=== PATIENT | male | born 1980 | race Caucasian/White ===

== ENCOUNTER 2018-03-08 13:43 | Inpatient (IN) | payer SELFPAY ==
[2018-03-08] MEDS ORDERED: Sodium Chloride 0.9% 10 ML Syringe FLUSH PRN (13:46)
[2018-03-08] MEDS ORDERED: Sodium Chloride 0.9% 2.5 ML Syringe FLUSH PRN (13:46)
[2018-03-08] MEDS ORDERED: Sodium Chloride 0.9% 1,000 ML IV ONE ×2 (13:47→15:20)
[2018-03-08] MEDS ORDERED: LORazepam 2 MG/ML SDV IVPUSH ONE ×3 (13:47→16:29)
--- NOTE | 2018-03-08 14:45 | EDM.PDOC ---
ED HPI GENERAL MEDICAL PROBLEM - General Chief Complaint: Drug or Alcohol Abuse Stated Complaint: UNK Time Seen by Provider: 03/08/18 13:45 Source of Information: Reports: Patient History Limitations: Reports: No Limitations - History of Present Illness INITIAL COMMENTS - FREE TEXT/NARRATIVE: History of present illness: []Patient has been on a binge using methamphetamines for the past 3 days constantly. He was brought in by police and EMS paranoid and agitated, admitted using methamphetamines for the past 3 days states he wants to stop. He has done this several times in the past wants to live a normal happy life. Patient spent 8 years in alf and has been out 2 years and states that he's paranoid is after him. Review of systems: As per history of present illness and below otherwise all systems reviewed and negative. Past medical history: As per history of present illness and as reviewed below otherwise noncontributory. Surgical history: As per history of present illness and as reviewed below otherwise noncontributory. Social history: No reported history of drug or alcohol abuse. Family history: As per history of present illness and as reviewed below otherwise noncontributory. Physical exam: General: Well developed, well nourished in NAD HEENT: Atraumatic, normocephalic, pupils reactive, negative for conjunctival pallor or scleral icterus, mucous membranes moist, throat clear, neck supple, nontender, trachea midline. Lungs: Clear to auscultation, breath sounds equal bilaterally, chest nontender. Heart: S1S2, regular, negative for clicks, rubs, or JVD. Abdomen: Soft, nondistended, nontender. Negative for masses or hepatosplenomegaly. Negative for costovertebral tenderness. Pelvis: Stable nontender. Genitourinary: Deferred. Rectal: Deferred. Extremities: Atraumatic, negative for cords or calf pain. Neurovascular unremarkable. Neuro: Awake, alert, oriented. Cranial nerves II through XII unremarkable. Cerebellum unremarkable. Motor and sensory unremarkable throughout. Exam nonfocal. Diagnostics: []CBC negative, chemistry negative, UA negative CPK 3300, troponin negative, EKG sinus tach, Therapeutics: []IV hydrated with normal saline, repeated doses of Ativan given in the ED 4 mg total Impression: []Methamphetamine abuse/binge Plan: []Admit for observation, hydration Definitive disposition and diagnosis as appropriate pending reevaluation and review of above. Chest Pain Score (Numeric/FACES): 7 - Related Data Allergies Allergy/AdvReac Type Severity Reaction Status Date / Time No Known Allergies Allergy Verified 03/08/18 13:52 Home Meds: Home Meds Escitalopram [Lexapro] 20 mg PO DAILY 03/08/18 [History] QUEtiapine [SEROquel] 100 mg PO BID 03/08/18 [History] Past Medical History Gastrointestinal History: Reports: Hepatitis Psychiatric History: Reports: Anxiety, Depression - Infectious Disease History Infectious Disease History: Reports: Chicken Pox, Hepatitis C Social & Family History - Family History Family Medical History: Noncontributory - Tobacco Use Smoking Status *Q: Current Every Day Smoker Years of Tobacco use: 15 Packs/Tins Daily: 1 Used Tobacco, but Quit: No Second Hand Smoke Exposure: Yes - Caffeine Use Caffeine Use: Reports: Coffee, Energy Drinks, Soda, Tea - Alcohol Use Days Per Week of Alcohol Use: 7 Number of Drinks Per Day: 10 Total Drinks Per Week: 70 - Recreational Drug Use Recreational Drug Use: Yes Recreational Drug Type: Reports: Cocaine, Marijuana/Hashish, Methamphetamine Recreational Drug Use Frequency: Binges ED ROS GENERAL - Review of Systems Review Of Systems: See Below (See history of present illness) ED EXAM, GENERAL - Physical Exam Exam: See Below (See history of present illness) Course - Vital Signs Last Recorded V/S: Last Vital Signs Temp 99.4 F 03/08/18 13:56 Pulse 105 03/08/18 16:34 Resp 18 03/08/18 16:34 BP 153/112 03/08/18 16:34 Pulse Ox 96 03/08/18 16:34 - Orders/Labs/Meds Orders: Active Orders 24 hr Category Date Time Status EKG Documentation Completion [RC] STAT Care 03/08/18 13:48 Active DRUG SCREEN, URINE [URCHEM] Stat Lab 03/08/18 14:15 Ordered Sodium Chloride 0.9% [Saline Flush] Med 03/08/18 13:46 Active 10 ml FLUSH ASDIRECTED PRN Sodium Chloride 0.9% [Saline Flush] Med 03/08/18 13:46 Active 2.5 ml FLUSH ASDIRECTED PRN Saline Lock Insert [OM.PC] Stat Oth 03/08/18 13:46 Ordered Medication Orders Escitalopram Oxalate (Lexapro) 20 mg PO DAILY [facility] Folic Acid (Folic Acid) 1 mg SUBCUT DAILY [facility] Lactated Ringer's (Ringers, Lactated) 1,000 mls @ 200 mls/hr IV ASDIRECTED JAYLAN Lorazepam (Ativan) 0 mg IV Q4H PRN; Protocol PRN Reason: CIWAA Lorazepam (Ativan) 1 mg IVPUSH Q6H PRN PRN Reason: anxiety/agitation Ondansetron HCl (Zofran) 4 mg IVPUSH Q4H PRN PRN Reason: Nausea Quetiapine Fumarate (Seroquel) 100 mg PO BID JAYLAN Sodium Chloride (Saline Flush) 10 ml FLUSH ASDIRECTED PRN PRN Reason: Keep Vein Open Last Admin: 03/08/18 14:20 Dose: 10 ml Sodium Chloride (Saline Flush) 2.5 ml FLUSH ASDIRECTED PRN PRN Reason: Keep Vein Open Last Admin: 03/08/18 14:21 Dose: 2.5 ml Thiamine HCl (Vitamin B-1) 100 mg IV DAILY [facility] Labs: Laboratory Tests 03/08/18 03/08/18 03/08/18 Range/Units 14:00 14:00 14:15 WBC 10.80 K/uL RBC 4.93 M/uL Hgb 16.8 g/dL Hct 44.9 % MCV 91.1 fL MCH 34.1 pg MCHC 37.4 g/dL RDW Std Deviation 40.7 (28.0-62.0) fl RDW Coeff of Emmy 12 % Plt Count 282 K/uL MPV 9.60 fL Neut % (Auto) 73.2 % Lymph % (Auto) 13.8 % [place] % (Auto) 12.6 % Eos % (Auto) 0.2 % Baso % (Auto) 0.2 % Neut # (Auto) 7.9 K/uL Lymph # (Auto) 1.5 K/uL [place] # (Auto) 1.4 K/uL Eos # (Auto) 0.0 K/uL Baso # (Auto) 0.0 K/uL Nucleated RBC % 0.0 /100WBC Nucleated RBCs # 0 K/uL Sodium 132 mmol/L Potassium 3.7 mmol/L Chloride 94 mmol/L Carbon Dioxide 25.3 mmol/L BUN 14 mg/dL Creatinine 1.3 mg/dL Est Cr Clr Drug Dosing TNP Estimated GFR (MDRD) 61.8 ml/min Glucose 109 mg/dL Calcium 9.4 mg/dL Total Bilirubin 1.6 H (0.2-1.0) mg/dL AST 215 IU/L ALT 371 IU/L Alkaline Phosphatase 106 U/L Creatine Kinase 3393 U/L Troponin I < 0.050 ng/mL Total Protein 8.6 g/dL Albumin 4.4 g/dL Globulin 4.2 g/dL Albumin/Globulin Ratio 1.0 Urine Color Urine Appearance Urine pH Ur Specific [place] Urine Protein mg/dL Urine Glucose (UA) mg/dL Urine Ketones mg/dL Urine Occult Blood Urine Nitrite Urine Bilirubin Urine Urobilinogen EU/dL Ur Leukocyte Esterase Urine RBC Urine WBC Ur Epithelial Cells Urine Bacteria Urine Mucus Urine Opiates Screen NEGATIVE Ur Oxycodone Screen NEGATIVE Urine Methadone Screen NEGATIVE Ur Barbiturates Screen NEGATIVE Ur Phencyclidine Scrn NEGATIVE Ur Amphetamine Screen POSITIVE U Methamphetamines Scrn POSITIVE U Benzodiazepines Scrn NEGATIVE U Cocaine Metab Screen NEGATIVE U Marijuana (THC) Screen NEGATIVE Ethyl Alcohol < 3.0 mg/dL 03/08/18 Range/Units 14:15 WBC K/uL RBC M/uL Hgb g/dL Hct % MCV fL MCH pg MCHC g/dL RDW Std Deviation (28.0-62.0) fl RDW Coeff of Emmy % Plt Count K/uL MPV fL Neut % (Auto) % Lymph % (Auto) % [place] % (Auto) % Eos % (Auto) % Baso % (Auto) % Neut # (Auto) K/uL Lymph # (Auto) K/uL [place] # (Auto) K/uL Eos # (Auto) K/uL Baso # (Auto) K/uL Nucleated RBC % /100WBC Nucleated RBCs # K/uL Sodium mmol/L Potassium mmol/L Chloride mmol/L Carbon Dioxide mmol/L BUN mg/dL Creatinine mg/dL Est Cr Clr Drug Dosing Estimated GFR (MDRD) ml/min Glucose mg/dL Calcium mg/dL Total Bilirubin (0.2-1.0) mg/dL AST IU/L ALT IU/L Alkaline Phosphatase U/L Creatine Kinase U/L Troponin I ng/mL Total Protein g/dL Albumin g/dL Globulin g/dL Albumin/Globulin Ratio Urine Color YELLOW Urine Appearance CLEAR Urine pH 6.0 Ur Specific [place] 1.020 Urine Protein NEGATIVE mg/dL Urine Glucose (UA) NEGATIVE mg/dL Urine Ketones NEGATIVE mg/dL Urine Occult Blood NEGATIVE Urine Nitrite NEGATIVE Urine Bilirubin NEGATIVE Urine Urobilinogen 0.2 EU/dL Ur Leukocyte Esterase NEGATIVE Urine RBC 0-1 Urine WBC 0-1 Ur Epithelial Cells RARE Urine Bacteria RARE Urine Mucus LIGHT Urine Opiates Screen Ur Oxycodone Screen Urine Methadone Screen Ur Barbiturates Screen Ur Phencyclidine Scrn Ur Amphetamine Screen U Methamphetamines Scrn U Benzodiazepines Scrn U Cocaine Metab Screen U Marijuana (THC) Screen Ethyl Alcohol mg/dL Meds: Medications Generic Name Dose Route Start Last Admin Trade Name Freq PRN Reason Stop Dose Admin Escitalopram Oxalate 20 mg 03/09/18 09:00 Lexapro PO DAILY JAYLAN Folic Acid 1 mg 03/08/18 17:30 Folic Acid SUBCUT DAILY JAYLAN Lactated Ringer's 1,000 mls @ 200 mls/hr 03/08/18 16:45 Ringers, Lactated IV ASDIRECTED JAYLAN Lorazepam 0 mg 03/08/18 16:34 Ativan IV Q4H PRN CIWAA Protocol Lorazepam 1 mg 03/08/18 17:23 Ativan IVPUSH Q6H PRN anxiety/agitation Ondansetron HCl 4 mg 03/08/18 16:34 Zofran IVPUSH Q4H PRN Nausea Quetiapine Fumarate 100 mg 03/08/18 21:00 Seroquel PO BID JAYLAN Sodium Chloride 10 ml 03/08/18 13:46 03/08/18 14:20 Saline Flush FLUSH 10 ml ASDIRECTED PRN Administration Keep Vein Open Sodium Chloride 2.5 ml 03/08/18 13:46 03/08/18 14:21 Saline Flush FLUSH 2.5 ml ASDIRECTED PRN Administration Keep Vein Open Thiamine HCl 100 mg 03/08/18 17:30 Vitamin B-1 IV DAILY JAYLAN Discontinued Medications Generic Name Dose Route Start Last Admin Trade Name Freq PRN Reason Stop Dose Admin Sodium Chloride 1,000 mls @ 999 mls/hr 03/08/18 13:47 03/08/18 14:20 Normal Saline IV 03/08/18 14:47 999 mls/hr .Bolus ONE Administration Sodium Chloride 1,000 mls @ 999 mls/hr 03/08/18 15:20 03/08/18 15:48 Normal Saline IV 06/28/18 16:20 999 mls/hr .Bolus ONE Administration Lorazepam 1 mg 03/08/18 13:47 03/08/18 14:20 Ativan IVPUSH 03/08/18 13:48 1 mg ONETIME ONE Administration Lorazepam 2 mg 03/08/18 14:30 03/08/18 14:36 Ativan IVPUSH 03/08/18 14:31 2 mg ONETIME ONE Administration Lorazepam 1 mg 03/08/18 16:29 Ativan IVPUSH 03/08/18 16:30 ONETIME ONE Departure - Departure Time of Disposition: 17:00 Disposition: Admitted As Inpatient 65 Condition: Good, Fair Clinical Impression: Methamphetamine abuse - Discharge Information - My Orders Last 24 Hours: My Active Orders 03/08/18 13:46 Sodium Chloride 0.9% [Saline Flush] 10 ml FLUSH ASDIRECTED PRN Sodium Chloride 0.9% [Saline Flush] 2.5 ml FLUSH ASDIRECTED PRN Saline Lock Insert [OM.PC] Stat 03/08/18 13:48 EKG Documentation Completion [RC] STAT 03/08/18 14:15 DRUG SCREEN, URINE [URCHEM] Stat - Assessment/Plan Last 24 Hours: My Active Orders 03/08/18 13:46 Sodium Chloride 0.9% [Saline Flush] 10 ml FLUSH ASDIRECTED PRN Sodium Chloride 0.9% [Saline Flush] 2.5 ml FLUSH ASDIRECTED PRN Saline Lock Insert [OM.PC] Stat 03/08/18 13:48 EKG Documentation Completion [RC] STAT 03/08/18 14:15 DRUG SCREEN, URINE [URCHEM] Stat
[2018-03-08 14:48] LABS: CHLORIDE,CL 94 mmol/L; SODIUM,NA 132 mmol/L
[2018-03-08] MEDS ORDERED: Ondansetron 4 MG/2 ML SDV IVPUSH PRN (16:34)
--- NOTE | 2018-03-08 16:48 | PCM.HP ---
H&P History of Present Illness - General Date of Service: 03/08/18 Admit Problem/Dx: Admission Diagnosis/Problem Admission Diagnosis/Problem Alcohol withdrawl, acute methamphetamine intoxication, rhabdomyolysis, and dehydration Source of Information: Patient History Limitations: Reports: Intoxication (methamphetamine and alcohol withdrawl) - History of Present Illness Initial Comments - Free Text/Narative: This 37 year old male with pmh of alcohol abuse, tobacco abuse, poly substance abuse, anxiety and depression presented to the ED with EMS today with paranoia and acute methamphetamine intoxication. He reports he has been using methamphetamines daily all day long for the past few days, he has orally ingested it along with smoking it, reports, "these drugs are stronger from when I went to [facility]." reports he was in [facility] for approximately 7-8 years for theft and had stopped using drugs all together for this time frame. He reports he has been out of [facility] for about 3 years and has started using drugs again, which include cocaine, methamphetamines, and marijuana. He also drinks 1 gallon of alcohol in 3-4 days. Reports having a history of seizures with cocaine use, but denies alcohol withdrawl. Unsure of his last drink, maybe a day ago. He reports he wants to stop using all together and wants help with this, "I am killing myself, if I continue to use drugs like this." Reports he has been Hep C positive since around age 26-28 and has never received treatment or seen a GI specialist for this. He reports smoking 1/2 ppd cigarettes as well daily. He denies recent trauma or injury. Reports he hasn't been eating for drinking great recently, but has been working out a lot at the gym. He denies any chest pain or shortness of breath. Reports some upper arm muscle pain and fatigue. No abdominal pain, constipation or diarrhea. No black or bloody BMs. reports tremors, denies hallucinations, auditory or visual. He reports being very anxious and paranoid, feeling as though people are out to hurt him. He denies suicidal ideation or homicidal ideation currently. Patient is a poor historian and very direct questions need to be asked otherwise patient does not answer them easily. In the ED no leukocytosis noted, Hgb 16.8, Na 132, K+3.7, BUN 14, Cr 1.3, CPK 3393, Troponin negative. Total bili 1.6, AST 215, ALT 371, alk phos 106. Ua negative. ETOH <3.0. U tox positive for methamphetamines and amphetamines. He was treated with 3 mg Ativan IV in the ED along with NS bolus x 2 L. VS remained stable, EKG revealed ST. he will be admitted inpatient for alcohol withdrawl, acute methamphetamine intoxication, and rhabdomyolysis. Chest Pain Score (Numeric/FACES): 7 - Related Data Allergies/Adverse Reactions: Allergies Allergy/AdvReac Type Severity Reaction Status Date / Time No Known Allergies Allergy Verified 03/08/18 13:52 Home Medications: Home Meds Escitalopram [Lexapro] 20 mg PO DAILY 03/08/18 [History] QUEtiapine [SEROquel] 100 mg PO BID 03/08/18 [History] Past Medical History Cardiovascular History: Reports: None. Denies: CAD, Hypertension, [place] Respiratory History: Reports: None. Denies: Asthma, COPD Gastrointestinal History: Reports: Hepatitis (Hepatitis C since age [age]) Genitourinary History: Reports: None Musculoskeletal History: Reports: None Neurological History: Reports: Seizure (reports from Cocaine use, never been on medications.) Psychiatric History: Reports: Addiction (polysubstance abuse), Anxiety, Depression. Denies: Suicide Attempt, Suicidal Ideation Endocrine/Metabolic History: Reports: None. Denies: Diabetes, Type II - Infectious Disease History Infectious Disease History: Reports: Chicken Pox, Hepatitis C Social & Family History - Family History Family Medical History: Noncontributory - Tobacco Use Smoking Status *Q: Current Every Day Smoker Years of Tobacco use: 15 Packs/Tins Daily: 0.5 Used Tobacco, but Quit: No Second Hand Smoke Exposure: Yes - Caffeine Use Caffeine Use: Reports: Coffee, Energy Drinks, Soda, Tea - Alcohol Use Alcohol Use History: Yes Days Per Week of Alcohol Use: 7 Number of Drinks Per Day: 10 Total Drinks Per Week: 70 Alcohol Use Frequency: Daily - Recreational Drug Use Recreational Drug Use: Yes Recreational Drug Type: Reports: Cocaine, Marijuana/Hashish, Methamphetamine Recreational Drug Use Frequency: Binges Recreational Drug Route: Reports: Inhaled, Intravenous (rarely but has in the past), Oral - Living Situation & Occupation Living situation: Reports: Single, Alone Occupation: Employed (currently working a [employer] wanting to get back into the [employer]) H&P Review of Systems - Review of Systems: Review Of Systems: See Below General: Reports: No Symptoms, Fatigue. Denies: Fever, Chills HEENT: Reports: No Symptoms. Denies: Hearing Changes, Sinus Congestion, Sore Throat, Vertigo Pulmonary: Reports: No Symptoms. Denies: Shortness of Breath, Cough, Sputum Cardiovascular: Reports: No Symptoms. Denies: Chest Pain, Palpitations, Edema, Lightheadedness Gastrointestinal: Reports: No Symptoms. Denies: Abdominal Pain, Black Stool, Bloody Stool, Distension, Nausea, Vomiting Genitourinary: Reports: No Symptoms. Denies: Dysuria, Frequency, Burning Musculoskeletal: Reports: Other (upper arm muscle fatigue and soreness from working out te last few days.) Skin: Reports: No Symptoms Psychiatric: Reports: Confusion, Depression, Anxiety, Agitation. Denies: Suicidal Ideation, Homicidal Ideation, Hallucinations (Auditory), Hallucinations (Visual) Neurological: Reports: Tremors. Denies: Headache, Numbness, Paresthesia, Seizure, Syncope, Weakness Hematologic/Lymphatic: Reports: No Symptoms Exam - Exam Exam: See Below - Vital Signs Vital Signs: Last Vital Signs Temp 99.4 F 03/08/18 13:56 Pulse 112 03/08/18 16:22 Resp 20 03/08/18 16:22 BP 136/76 03/08/18 16:22 Pulse Ox 98 03/08/18 16:22 Weight: 83.915 kg - Exam Quality Assessment: DVT Prophylaxis (SCDs) General: Alert, Oriented, Cooperative, Sedated (easily falls asleep between discussions.), Other (Patient is very figidity in bed, easily falling asleep during conversation, flushed face that is clammy in appearance.) HEENT: Conjunctiva Clear, Mucosa Moist & [place], Pupils Equal, Pupils Reactive Neck: Supple, Trachea Midline Lungs: Clear to Auscultation, Normal Respiratory Effort Cardiovascular: Regular Rhythm, Normal S1, Normal S2, Tachycardia. No: Systolic Murmur GI/Abdominal Exam: Normal Bowel Sounds, Soft, Non-Tender, No Organomegaly, No Distention Back Exam: Normal Inspection, Full Range of Motion Extremities: Normal Inspection, Normal Range of Motion, Non-Tender, No Pedal Edema Skin: Other (Clammy in appearance. ) Neuro Extensive - Mental Status: Alert, Oriented x3, Other (appears to have normal cognition, but poor historian and like sedated from Ativan and disorganized thoughts from methamphetamine.) Neuro Extensive - Motor, Sensory, Reflexes: CN II-XII Intact (will follow commands, but easily distracted.), Tremor Psychiatric: Anxious, Agitated, Withdrawal Symptoms, Other (constantly looking around the room. Nervous). No: Suicidal Ideation, Homicidal Ideation, Hallucinations - Patient Data Lab Results Last 24 hrs: Laboratory Results - last 24 hr 03/08/18 03/08/18 03/08/18 Range/Units 14:00 14:00 14:15 WBC 10.80 K/uL RBC 4.93 M/uL Hgb 16.8 g/dL Hct 44.9 % MCV 91.1 fL MCH 34.1 pg MCHC 37.4 g/dL RDW Std Deviation 40.7 (28.0-62.0) fl RDW Coeff of Emmy 12 % Plt Count 282 K/uL MPV 9.60 fL Neut % (Auto) 73.2 % Lymph % (Auto) 13.8 % [place] % (Auto) 12.6 % Eos % (Auto) 0.2 % Baso % (Auto) 0.2 % Neut # (Auto) 7.9 K/uL Lymph # (Auto) 1.5 K/uL [place] # (Auto) 1.4 K/uL Eos # (Auto) 0.0 K/uL Baso # (Auto) 0.0 K/uL Nucleated RBC % 0.0 /100WBC Nucleated RBCs # 0 K/uL Sodium 132 mmol/L Potassium 3.7 mmol/L Chloride 94 mmol/L Carbon Dioxide 25.3 mmol/L BUN 14 mg/dL Creatinine 1.3 mg/dL Est Cr Clr Drug Dosing TNP Estimated GFR (MDRD) 61.8 ml/min Glucose 109 mg/dL Calcium 9.4 mg/dL Total Bilirubin 1.6 H (0.2-1.0) mg/dL AST 215 IU/L ALT 371 IU/L Alkaline Phosphatase 106 U/L Creatine Kinase 3393 U/L Troponin I < 0.050 ng/mL Total Protein 8.6 g/dL Albumin 4.4 g/dL Globulin 4.2 g/dL Albumin/Globulin Ratio 1.0 Urine Color Urine Appearance Urine pH Ur Specific [place] Urine Protein mg/dL Urine Glucose (UA) mg/dL Urine Ketones mg/dL Urine Occult Blood Urine Nitrite Urine Bilirubin Urine Urobilinogen EU/dL Ur Leukocyte Esterase Urine RBC Urine WBC Ur Epithelial Cells Urine Bacteria Urine Mucus Urine Opiates Screen NEGATIVE Ur Oxycodone Screen NEGATIVE Urine Methadone Screen NEGATIVE Ur Barbiturates Screen NEGATIVE Ur Phencyclidine Scrn NEGATIVE Ur Amphetamine Screen POSITIVE U Methamphetamines Scrn POSITIVE U Benzodiazepines Scrn NEGATIVE U Cocaine Metab Screen NEGATIVE U Marijuana (THC) Screen NEGATIVE Ethyl Alcohol < 3.0 mg/dL 03/08/18 Range/Units 14:15 WBC K/uL RBC M/uL Hgb g/dL Hct % MCV fL MCH pg MCHC g/dL RDW Std Deviation (28.0-62.0) fl RDW Coeff of Emmy % Plt Count K/uL MPV fL Neut % (Auto) % Lymph % (Auto) % [place] % (Auto) % Eos % (Auto) % Baso % (Auto) % Neut # (Auto) K/uL Lymph # (Auto) K/uL [place] # (Auto) K/uL Eos # (Auto) K/uL Baso # (Auto) K/uL Nucleated RBC % /100WBC Nucleated RBCs # K/uL Sodium mmol/L Potassium mmol/L Chloride mmol/L Carbon Dioxide mmol/L BUN mg/dL Creatinine mg/dL Est Cr Clr Drug Dosing Estimated GFR (MDRD) ml/min Glucose mg/dL Calcium mg/dL Total Bilirubin (0.2-1.0) mg/dL AST IU/L ALT IU/L Alkaline Phosphatase U/L Creatine Kinase U/L Troponin I ng/mL Total Protein g/dL Albumin g/dL Globulin g/dL Albumin/Globulin Ratio Urine Color YELLOW Urine Appearance CLEAR Urine pH 6.0 Ur Specific [place] 1.020 Urine Protein NEGATIVE mg/dL Urine Glucose (UA) NEGATIVE mg/dL Urine Ketones NEGATIVE mg/dL Urine Occult Blood NEGATIVE Urine Nitrite NEGATIVE Urine Bilirubin NEGATIVE Urine Urobilinogen 0.2 EU/dL Ur Leukocyte Esterase NEGATIVE Urine RBC 0-1 Urine WBC 0-1 Ur Epithelial Cells RARE Urine Bacteria RARE Urine Mucus LIGHT Urine Opiates Screen Ur Oxycodone Screen Urine Methadone Screen Ur Barbiturates Screen Ur Phencyclidine Scrn Ur Amphetamine Screen U Methamphetamines Scrn U Benzodiazepines Scrn U Cocaine Metab Screen U Marijuana (THC) Screen Ethyl Alcohol mg/dL Result Diagrams: 03/08/18 14:00 03/08/18 14:00 *Q Meaningful Use (ADM) - VTE Risk Assess *Q Each Risk Factor Represents 1 Point: None Total Score 1 Point Risk Factors: 0 Each Risk Factor Represents 2 Points: None Total Score 2 Point Risk Factors: 0 Each Risk Factor Represents 3 Points: None Total Score 3 Point Risk Factors: 0 Each Risk Factor Represents 5 Points: None Total Score 5 Point Risk Factors: 0 Venous Thromboembolism Risk Factor Score *Q: 0 - Problem List (1) Alcohol withdrawal SNOMED Code(s): 513211528 ICD Code: F10.239 - ALCOHOL DEPENDENCE WITH WITHDRAWAL, UNSPECIFIED Status : Acute Current Visit: Yes (2) Rhabdomyolysis SNOMED Code(s): 216738254 ICD Code: M62.82 - RHABDOMYOLYSIS Status: Acute Current Visit: Yes (3) Methamphetamine intoxication SNOMED Code(s): 04965181532448272 ICD Code: F15.929 - OTHER STIMULANT USE, UNSP WITH INTOXICATION, UNSPECIFIED Status: Acute Current Visit: Yes (4) Dehydration SNOMED Code(s): 09696310 ICD Code: E86.0 - DEHYDRATION Status: Acute Current Visit: Yes (5) Elevated LFTs SNOMED Code(s): 909778482, 431965979 ICD Code: R94.5 - ABNORMAL RESULTS OF LIVER FUNCTION STUDIES Status: Acute Current Visit: Yes (6) Alcohol abuse SNOMED Code(s): 46645178 ICD Code: F10.10 - ALCOHOL ABUSE, UNCOMPLICATED Status: Chronic Current Visit: Yes (7) Polysubstance (excluding opioids) dependence, binge pattern SNOMED Code(s): 192529345 ICD Code: F19.20 - OTHER PSYCHOACTIVE SUBSTANCE DEPENDENCE, UNCOMPLICATED Status: Chronic Current Visit: Yes (8) Anxiety and depression SNOMED Code(s): 53088344 ICD Code: F41.9 - ANXIETY DISORDER, UNSPECIFIED; F32.9 - MAJOR DEPRESSIVE DISORDER, SINGLE EPISODE, UNSPECIFIED Status: Chronic Current Visit: Yes (9) Hx of hepatitis C SNOMED Code(s): 74349655555637, 25219027726219 ICD Code: Z86.19 - PERSONAL HISTORY OF OTHER INFECTIOUS AND PARASITIC DISEASES Status: Chronic Current Visit: Yes Problem List Initiated/Reviewed/Updated: Yes Orders Last 24hrs: Active Orders 24 hr Category Date Time Status Patient Status [ADT] Routine ADT 03/08/18 16:34 Ordered CIWAA Assessment [RC] Q4H Care 03/08/18 16:34 Ordered EKG Documentation Completion [RC] STAT Care 03/08/18 13:48 Active Intake and Output [RC] QSHIFT Care 03/08/18 16:35 Ordered Oxygen Therapy [RC] PRN Care 03/08/18 16:34 Ordered Telemetry Monitoring [Cardiac Monitoring] [RC] . Care 03/08/18 16:39 Ordered DIRECTED Up With Assistance [RC] ASDIRECTED Care 03/08/18 16:34 Ordered VTE/DVT Education [RC] PER UNIT ROUTINE Care 03/08/18 16:34 Ordered Vital Signs [RC] Q4H Care 03/08/18 16:34 Ordered Regular Diet [DIET] Diet 03/08/18 Dinner Ordered CBC WITH AUTO DIFF [HEME] AM Lab 03/09/18 05:11 Ordered COMPREHENSIVE METABOLIC PN,CMP [CHEM] AM Lab 03/09/18 05:11 Ordered CREATINE KINASE,CK [CHEM] AM Lab 03/09/18 05:11 Ordered DRUG SCREEN, URINE [URCHEM] Stat Lab 03/08/18 14:41 Ordered HEPATITIS PANEL (4) [REF] Routine Lab 03/08/18 16:41 Ordered MAGNESIUM [CHEM] AM Lab 03/09/18 05:11 Ordered PHOSPHORUS [CHEM] AM Lab 03/09/18 05:11 Ordered Escitalopram Med 03/09/18 09:00 Ordered 20 mg PO DAILY LORazepam [Ativan] Med 03/08/18 16:34 Ordered See Protocol IV Q4H PRN Lactated Ringers [Ringers, Lactated] 1,000 ml Med 03/08/18 16:45 Ordered IV ASDIRECTED Ondansetron [Zofran] Med 03/08/18 16:34 Ordered 4 mg IVPUSH Q4H PRN QUEtiapine [SEROquel] Med 03/08/18 21:00 Ordered 100 mg PO BID Sodium Chloride 0.9% [Saline Flush] Med 03/08/18 13:46 Active 10 ml FLUSH ASDIRECTED PRN Sodium Chloride 0.9% [Saline Flush] Med 03/08/18 13:46 Active 2.5 ml FLUSH ASDIRECTED PRN Saline Lock Insert [OM.PC] Stat Oth 03/08/18 13:46 Ordered Sequential Compression Device [OM.PC] Per Unit Routine Oth 03/08/18 16:36 Ordered Resuscitation Status Routine Resus Stat 03/08/18 16:34 Ordered Medication Orders Lactated Ringer's (Ringers, Lactated) 1,000 mls @ 200 mls/hr IV ASDIRECTED JAYLAN Lorazepam (Ativan) 0 mg IV Q4H PRN; Protocol PRN Reason: CIWAA Non-Formulary Medication (Escitalopram) 20 mg PO DAILY JAYLAN Ondansetron HCl (Zofran) 4 mg IVPUSH Q4H PRN PRN Reason: Nausea Quetiapine Fumarate (Seroquel) 100 mg PO BID JAYLAN Sodium Chloride (Saline Flush) 10 ml FLUSH ASDIRECTED PRN PRN Reason: Keep Vein Open Last Admin: 03/08/18 14:20 Dose: 10 ml Sodium Chloride (Saline Flush) 2.5 ml FLUSH ASDIRECTED PRN PRN Reason: Keep Vein Open Last Admin: 03/08/18 14:21 Dose: 2.5 ml Assessment/Plan Comment:: This 37 year old male admitted with acute alcohol withdrawl, methamphetamine intoxication, rhabdomyolysis, and dehydration. Has a pmh of polysubstance abuse , anxiety and depression 1. Alcohol withdrawl: Will cover with CIWAA protocol with Ativan. Monitor closely. Will supplement with thiamine and folic acid. Place on seizure precautions due to hx of seizures with cocaine use. 2. Acute methamphetamine intoxication: Ativan as above to help with agitation and anxiety. Monitor closely. 3. Rhabdomyolysis: Given 2 L bolus in the ED, may be secondary to methamphetamine use, dehydration and recent high intensity work out. Continue LR at 200 ml/hr and recheck CPK in am. Strict I/O. 4. Anxiety and depression: Continue Seroquel and Lexapro. Will contact Dr Sun in am regarding possible consultation. 5. Tobacco abuse: Will hold off on placement of nicotine patch secondary to tachycardia. 6. Elevated LFTs: Will obtain hepatitis panel and abd U/S to evaluate liver. VTE prophylaxis: SCDs Dispo: 2-3 days pending improvement.
[2018-03-08] MEDS ORDERED: LORazepam 2 MG/ML SDV IVPUSH PRN (17:23)
[2018-03-08] MEDS: QUEtiapine 100 MG Tab PO SCH (22:00)
[2018-03-08] MEDS: Lactated Ringers 1,000 ML IV SCH (22:03)
[2018-03-08] MEDS: Thiamine 200 MG/2 ML MDV IV SCH (22:06)
[2018-03-08] MEDS: Folic Acid 50 MG/10 ML MDV SUBCUT SCH (22:06)
[2018-03-09] MEDS: LORazepam 2 MG/ML SDV IV PRN ×3 (01:32→05:08)
[2018-03-09] MEDS: Lactated Ringers 1,000 ML IV SCH (03:12)
[2018-03-09 06:04] LABS: CHLORIDE,CL 103 mmol/L; SODIUM,NA 139 mmol/L
[2018-03-09] MEDS ORDERED: LORazepam 2 MG/ML SDV IM ONE (08:48)
[2018-03-09] MEDS ORDERED: Escitalopram 10 MG Tab PO SCH (09:00)
--- NOTE | 2018-03-09 09:03 | PCM.DCSUM1 ---
Discharge Summary - Hospital Course Brief History: This 37 year old male with pmh of alcohol abuse, tobacco abuse, poly substance abuse, anxiety and depression presented to the ED with EMS today with paranoia and acute methamphetamine intoxication. He reports he has been using methamphetamines daily all day long for the past few days, he has orally ingested it along with smoking it, reports, "these drugs are stronger from when I went to shelter." reports he was in shelter for approximately 7-8 years for theft and had stopped using drugs all together for this time frame. He reports he has been out of shelter for about 3 years and has started using drugs again, which include cocaine, methamphetamines, and marijuana. He also drinks 1 gallon of alcohol in 3-4 days. Reports having a history of seizures with cocaine use, but denies alcohol withdrawl. Unsure of his last drink, maybe a day ago. He reports he wants to stop using all together and wants help with this, "I am killing myself, if I continue to use drugs like this." Reports he has been Hep C positive since around age 26-28 and has never received treatment or seen a GI specialist for this. He reports smoking 1/2 ppd cigarettes as well daily. He denies recent trauma or injury. Reports he hasn't been eating for drinking great recently, but has been working out a lot at the gym. He denies any chest pain or shortness of breath. Reports some upper arm muscle pain and fatigue. No abdominal pain, constipation or diarrhea. No black or bloody BMs. reports tremors, denies hallucinations, auditory or visual. He reports being very anxious and paranoid, feeling as though people are out to hurt him. He denies suicidal ideation or homicidal ideation currently. Patient is a poor historian and very direct questions need to be asked otherwise patient does not answer them easily. In the ED no leukocytosis noted, Hgb 16.8, Na 132, K+3.7, BUN 14, Cr 1.3, CPK 3393, Troponin negative. Total bili 1.6, AST 215, ALT 371, alk phos 106. Ua negative. ETOH <3.0. U tox positive for methamphetamines and amphetamines. He was treated with 3 mg Ativan IV in the ED along with NS bolus x 2 L. VS remained stable, EKG revealed ST. he will be admitted inpatient for alcohol withdrawl, acute methamphetamine intoxication, and rhabdomyolysis. - Discharge Data Discharge Date: 03/09/18 Discharge Disposition: DC/Tfer to Acute Hospital 02 Condition: Fair - Discharge Diagnosis/Problem(s) (1) Alcohol withdrawal SNOMED Code(s): 125626899 ICD Code: F10.239 - ALCOHOL DEPENDENCE WITH WITHDRAWAL, UNSPECIFIED Status : Acute Current Visit: Yes (2) Rhabdomyolysis SNOMED Code(s): 203353770 ICD Code: M62.82 - RHABDOMYOLYSIS Status: Acute Current Visit: Yes (3) Methamphetamine intoxication SNOMED Code(s): 74173514722034361 ICD Code: F15.929 - OTHER STIMULANT USE, UNSP WITH INTOXICATION, UNSPECIFIED Status: Acute Current Visit: Yes (4) Dehydration SNOMED Code(s): 16623332 ICD Code: E86.0 - DEHYDRATION Status: Acute Current Visit: Yes (5) Elevated LFTs SNOMED Code(s): 546425511, 361373108 ICD Code: R94.5 - ABNORMAL RESULTS OF LIVER FUNCTION STUDIES Status: Acute Current Visit: Yes (6) Alcohol abuse SNOMED Code(s): 54773031 ICD Code: F10.10 - ALCOHOL ABUSE, UNCOMPLICATED Status: Chronic Current Visit: Yes (7) Polysubstance (excluding opioids) dependence, binge pattern SNOMED Code(s): 188807912 ICD Code: F19.20 - OTHER PSYCHOACTIVE SUBSTANCE DEPENDENCE, UNCOMPLICATED Status: Chronic Current Visit: Yes (8) Anxiety and depression SNOMED Code(s): 04651284 ICD Code: F41.9 - ANXIETY DISORDER, UNSPECIFIED; F32.9 - MAJOR DEPRESSIVE DISORDER, SINGLE EPISODE, UNSPECIFIED Status: Chronic Current Visit: Yes (9) Hx of hepatitis C SNOMED Code(s): 81558873800005, 06955651436047 ICD Code: Z86.19 - PERSONAL HISTORY OF OTHER INFECTIOUS AND PARASITIC DISEASES Status: Chronic Current Visit: Yes - Discharge Plan Home Medications: Home Meds Escitalopram [Lexapro] 20 mg PO DAILY 03/08/18 [History] QUEtiapine [SEROquel] 100 mg PO BID 03/08/18 [History] Forms: ED Department Discharge Referrals: PCP,None [Primary Care Provider] - - Discharge Summary/Plan Comment DC Time >30 min.: No Discharge Summary/Plan Comment: Discharge Diagnoses: Acute alcohol detox Methamphetamine use Cocaine use Elevated CPK Tobacco abuse Hx Hep C- untreated Anxiety and depression Jaspreet was admitted last evening with acute alcohol detox. Overnight he was given 8 mg Ativan IV, which kept him only mildly calm. he was in hallways ambulating naked, urinating in the room and having auditory and visual hallucinations. This morning he continues to have CIWAA scores of 17-20. No ICU bed is available in our facility. He understands he needs to be transferred to another hospital for further care for his detox and hallucinations. I spoke with Dr Fry, ED in [place] who has kindly accepted patient for transfer. He last received 2 mg IV Ativan at 0500 this morning. I will given him another dose of Ativan now 2 mg IM, since he recently pulled his IV out. We will transfer patient for acute detox this morning. Will need psychiatric evaluation in future as well as GI follow up for untreated Hep C. - General Info Date of Service: 03/09/18 Admission Dx/Problem (Free Text: Admission Diagnosis/Problem Admission Diagnosis/Problem Alcohol withdrawl, acute methamphetamine intoxication, rhabdomyolysis, and dehydration Subjective Update: Confused and is hallucinating. Recently pulled IV out, with blood all over room and urinating off of bed. Patient is calm when spoken to and understands he needs further help. Thoughts are fleeting knowing he needs help and wants to get better so he can work. Functional Status: Reports: Pain Controlled, Tolerating Diet, Ambulating, Urinating - Review of Systems General: Reports: No Symptoms. Denies: Fever, Weakness HEENT: Reports: No Symptoms Pulmonary: Reports: No Symptoms. Denies: Shortness of Breath Cardiovascular: Reports: No Symptoms. Denies: Chest Pain Gastrointestinal: Reports: No Symptoms. Denies: Abdominal Pain, Nausea, Vomiting Genitourinary: Reports: No Symptoms Musculoskeletal: Reports: No Symptoms Skin: Reports: No Symptoms Neurological: Reports: No Symptoms Psychiatric: Reports: Confusion, Anxiety, Agitation, Hallucinations. Denies: Suicidal Ideation, Homicidal Ideation - Patient Data Vitals - Most Recent: Last Vital Signs Temp 98.3 F 03/09/18 05:15 Pulse 77 03/09/18 05:15 Resp 18 03/09/18 05:15 BP 138/86 03/09/18 05:15 Pulse Ox 96 03/09/18 05:15 Weight - Most Recent: 83.915 kg I&O - Last 24 hours: Intake & Output 03/08/18 03/09/18 03/09/18 22:59 06:59 14:59 Intake Total 1000 240 Balance 1000 240 Lab Results - Last 24 hrs: Laboratory Results - last 24 hr 03/08/18 03/08/18 03/08/18 Range/Units 14:00 14:00 14:15 WBC 10.80 K/uL RBC 4.93 M/uL Hgb 16.8 g/dL Hct 44.9 % MCV 91.1 fL MCH 34.1 pg MCHC 37.4 g/dL RDW Std Deviation 40.7 (28.0-62.0) fl RDW Coeff of Emmy 12 % Plt Count 282 K/uL MPV 9.60 fL Neut % (Auto) 73.2 % Lymph % (Auto) 13.8 % [place] % (Auto) 12.6 % Eos % (Auto) 0.2 % Baso % (Auto) 0.2 % Neut # (Auto) 7.9 K/uL Lymph # (Auto) 1.5 K/uL [place] # (Auto) 1.4 K/uL Eos # (Auto) 0.0 K/uL Baso # (Auto) 0.0 K/uL Nucleated RBC % 0.0 /100WBC Nucleated RBCs # 0 K/uL Sodium 132 mmol/L Potassium 3.7 mmol/L Chloride 94 mmol/L Carbon Dioxide 25.3 mmol/L BUN 14 mg/dL Creatinine 1.3 mg/dL Est Cr Clr Drug Dosing TNP Estimated GFR (MDRD) 61.8 ml/min Glucose 109 mg/dL Calcium 9.4 mg/dL Phosphorus mg/dL Magnesium mg/dL Total Bilirubin 1.6 H (0.2-1.0) mg/dL AST 215 IU/L ALT 371 IU/L Alkaline Phosphatase 106 U/L Creatine Kinase 3393 U/L Troponin I < 0.050 ng/mL Total Protein 8.6 g/dL Albumin 4.4 g/dL Globulin 4.2 g/dL Albumin/Globulin Ratio 1.0 Urine Color Urine Appearance Urine pH Ur Specific [place] Urine Protein mg/dL Urine Glucose (UA) mg/dL Urine Ketones mg/dL Urine Occult Blood Urine Nitrite Urine Bilirubin Urine Urobilinogen EU/dL Ur Leukocyte Esterase Urine RBC Urine WBC Ur Epithelial Cells Urine Bacteria Urine Mucus Urine Opiates Screen NEGATIVE Ur Oxycodone Screen NEGATIVE Urine Methadone Screen NEGATIVE Ur Barbiturates Screen NEGATIVE Ur Phencyclidine Scrn NEGATIVE Ur Amphetamine Screen POSITIVE U Methamphetamines Scrn POSITIVE U Benzodiazepines Scrn NEGATIVE U Cocaine Metab Screen NEGATIVE U Marijuana (THC) Screen NEGATIVE Ethyl Alcohol < 3.0 mg/dL 03/08/18 03/09/18 03/09/18 Range/Units 14:15 04:55 04:55 WBC 7.37 K/uL RBC 4.46 M/uL Hgb 14.9 g/dL Hct 40.9 % MCV 91.7 fL MCH 33.4 pg MCHC 36.4 g/dL RDW Std Deviation 40.9 (28.0-62.0) fl RDW Coeff of Emmy 12 % Plt Count 199 K/uL MPV 9.40 fL Neut % (Auto) 59.1 % Lymph % (Auto) 28.6 % [place] % (Auto) 11.1 % Eos % (Auto) 0.9 % Baso % (Auto) 0.3 % Neut # (Auto) 4.4 K/uL Lymph # (Auto) 2.1 K/uL [place] # (Auto) 0.8 K/uL Eos # (Auto) 0.1 K/uL Baso # (Auto) 0.0 K/uL Nucleated RBC % 0.0 /100WBC Nucleated RBCs # 0 K/uL Sodium 139 mmol/L Potassium 3.3 mmol/L Chloride 103 mmol/L Carbon Dioxide 25.3 mmol/L BUN 11 mg/dL Creatinine 1.2 mg/dL Est Cr Clr Drug Dosing TNP Estimated GFR (MDRD) 67.8 ml/min Glucose 99 mg/dL Calcium 8.9 mg/dL Phosphorus 4.0 mg/dL Magnesium 2.1 mg/dL Total Bilirubin 1.7 H (0.2-1.0) mg/dL AST 143 IU/L ALT 288 IU/L Alkaline Phosphatase 86 U/L Creatine Kinase 1515 U/L Troponin I ng/mL Total Protein 7.1 g/dL Albumin 3.6 g/dL Globulin 3.5 g/dL Albumin/Globulin Ratio 1.0 Urine Color YELLOW Urine Appearance CLEAR Urine pH 6.0 Ur Specific [place] 1.020 Urine Protein NEGATIVE mg/dL Urine Glucose (UA) NEGATIVE mg/dL Urine Ketones NEGATIVE mg/dL Urine Occult Blood NEGATIVE Urine Nitrite NEGATIVE Urine Bilirubin NEGATIVE Urine Urobilinogen 0.2 EU/dL Ur Leukocyte Esterase NEGATIVE Urine RBC 0-1 Urine WBC 0-1 Ur Epithelial Cells RARE Urine Bacteria RARE Urine Mucus LIGHT Urine Opiates Screen Ur Oxycodone Screen Urine Methadone Screen Ur Barbiturates Screen Ur Phencyclidine Scrn Ur Amphetamine Screen U Methamphetamines Scrn U Benzodiazepines Scrn U Cocaine Metab Screen U Marijuana (THC) Screen Ethyl Alcohol mg/dL Med Orders - Current: Current Medications Escitalopram Oxalate (Lexapro) 20 mg PO DAILY [facility] Folic Acid (Folic Acid) 1 mg SUBCUT DAILY [facility] Last Admin: 03/08/18 22:06 Dose: Not Given Lactated Ringer's (Ringers, Lactated) 1,000 mls @ 200 mls/hr IV ASDIRECTED [facility] Last Admin: 03/09/18 03:12 Dose: 200 mls/hr Lorazepam (Ativan) 0 mg IV Q4H PRN; Protocol PRN Reason: CIWAA Last Admin: 03/09/18 05:08 Dose: 2 mg Lorazepam (Ativan) 1 mg IVPUSH Q6H PRN PRN Reason: anxiety/agitation Last Admin: 03/08/18 22:00 Dose: 1 mg Ondansetron HCl (Zofran) 4 mg IVPUSH Q4H PRN PRN Reason: Nausea Quetiapine Fumarate (Seroquel) 100 mg PO BID [facility] Last Admin: 03/08/18 22:00 Dose: 100 mg Sodium Chloride (Saline Flush) 10 ml FLUSH ASDIRECTED PRN PRN Reason: Keep Vein Open Last Admin: 03/08/18 14:20 Dose: 10 ml Sodium Chloride (Saline Flush) 2.5 ml FLUSH ASDIRECTED PRN PRN Reason: Keep Vein Open Last Admin: 03/08/18 14:21 Dose: 2.5 ml Thiamine HCl (Vitamin B-1) 100 mg IV DAILY [facility] Last Admin: 03/08/18 22:06 Dose: Not Given Discontinued Medications Sodium Chloride (Normal Saline) 1,000 mls @ 999 mls/hr IV .Bolus ONE Stop: 03/08/18 14:47 Last Admin: 03/08/18 14:20 Dose: 999 mls/hr Sodium Chloride (Normal Saline) 1,000 mls @ 999 mls/hr IV .Bolus ONE Stop: 03/08/18 16:20 Last Admin: 03/08/18 15:48 Dose: 999 mls/hr Lorazepam (Ativan) 1 mg IVPUSH ONETIME ONE Stop: 03/08/18 13:48 Last Admin: 03/08/18 14:20 Dose: 1 mg Lorazepam (Ativan) 2 mg IVPUSH ONETIME ONE Stop: 03/08/18 14:31 Last Admin: 03/08/18 14:36 Dose: 2 mg Lorazepam (Ativan) 1 mg IVPUSH ONETIME ONE Stop: 03/08/18 16:30 Last Admin: 03/08/18 22:06 Dose: Not Given Lorazepam (Ativan) 2 mg IM ONETIME ONE Stop: 03/09/18 08:49 - Exam General: Reports: Alert, Cooperative. Denies: Oriented Neck: Reports: Supple Lungs: Reports: Clear to Auscultation, Normal Respiratory Effort Cardiovascular: Reports: Regular Rate, Regular Rhythm GI/Abdominal Exam: Normal Bowel Sounds, Soft, Non-Tender Extremities: Normal Inspection, Normal Range of Motion, Non-Tender Wound/Incisions: Reports: Other (multiple IV sites which have small hematomas noted secondary to patient pulling IV out. ) Neurological: Reports: No New Focal Deficit Psy/Mental Status: Reports: Alert, Normal Affect, Normal Mood
[2018-03-09] MEDS: QUEtiapine 100 MG Tab PO SCH (10:26)
[2018-03-09] MEDS: Thiamine 200 MG/2 ML MDV IV SCH (10:30)
[2018-03-09] MEDS: Folic Acid 50 MG/10 ML MDV SUBCUT SCH (10:30)
--- NOTE | 2018-03-09 11:28 | US ---
EXAMINATION: Right upper quadrant ultrasound HISTORY: Elevated LFTs COMPARISON: None TECHNIQUE: Grayscale and color Doppler imaging obtained. FINDINGS: The visualized pancreas is normal. The liver is normal in contour and echotexture without a focal hepatic mass. The gallbladder wall thickness is normal. No pericholecystic fluid or shadowing gallstones. The common bile duct measures 4 mm. The right kidney measures 11.1 cm [id number] withou t evidence of hydronephrosis. Negative sonographic Dunbar sign. IMPRESSION: Unremarkable right upper quadrant ultrasound.
== END 2018-03-09 11:30 | DRG 897 ==
LOC: MW.ED 13:43 → MW.MS 15:57 → OBSVTOIN 16:34 → MW.MS 16:34 → EDSEX 16:34
PROVIDERS: ADMIT Internal Medicine; ATTEND Internal Medicine
DX: F10.239 Alcohol dependence with withdrawal, unspecified (principal); M62.82 Rhabdomyolysis; F19.20 Other psychoactive substance dependence, uncomplicated; F17.210 Nicotine dependence, cigarettes, uncomplicated; Y90.0 Blood alcohol level of less than 20 mg/100 ml; E86.0 Dehydration; F41.9 Anxiety disorder, unspecified; F32.9 Major depressive disorder, single episode, unspecified; B19.20 Unspecified viral hepatitis C without hepatic coma; R94.5 Abnormal results of liver function studies; F15.129 Other stimulant abuse with intoxication, unspecified; Z79.899 Other long term (current) drug therapy
CPT/HCPCS: 36415; 76705; 76705-26; 80053; 80074; 80305; 81001; 82550; 83735; 84100; 84484; 85025; 93005; A9270-GY; G0480; J2060; J7040; J7120

== ENCOUNTER 2018-09-26 23:13 | Emergency (ER) | payer OTHER, BC ==
--- NOTE | 2018-09-26 23:31 | EDM.PDOC ---
ED HPI GENERAL MEDICAL PROBLEM - General Chief Complaint: Behavioral/Psych Stated Complaint: UNKNOWN Time Seen by Provider: 09/26/18 23:29 - History of Present Illness INITIAL COMMENTS - FREE TEXT/NARRATIVE: HISTORY AND PHYSICAL: History of present illness: Patient 38-year-old white male sensory concern of anxiety he states he ingested some methamphetamine earlier. He denies chest pain service of breath or other concern Review of systems: As per history of present illness and below otherwise all systems reviewed and negative. Past medical history: As per history of present illness and as reviewed below otherwise noncontributory. Surgical history: As per history of present illness and as reviewed below otherwise noncontributory. Social history: No reported history of drug or alcohol abuse. Family history: As per history of present illness and as reviewed below otherwise noncontributory. Physical exam: HEENT: Atraumatic, normocephalic, pupils reactive, negative for conjunctival pallor or scleral icterus, mucous membranes moist, throat clear, neck supple, nontender, trachea midline. Lungs: Clear to auscultation, breath sounds equal bilaterally, chest nontender. Heart: S1S2, regular, negative for clicks, rubs, or JVD. Abdomen: Soft, nondistended, nontender. Negative for masses or hepatosplenomegaly. Negative for costovertebral tenderness. Pelvis: Stable nontender. Genitourinary: Deferred. Rectal: Deferred. Extremities: Atraumatic, negative for cords or calf pain. Neurovascular unremarkable. Neuro: Awake, alert, oriented. Cranial nerves II through XII unremarkable. Cerebellum unremarkable. Motor and sensory unremarkable throughout. Exam nonfocal. Diagnostics: EKG residential monitor Therapeutics: None Impression: #1 substance abuse #2 medical screening exam Definitive disposition and diagnosis as appropriate pending reevaluation and review of above. - Related Data Allergies Allergy/AdvReac Type Severity Reaction Status Date / Time No Known Allergies Allergy Verified 03/08/18 13:52 Home Meds: Home Meds Escitalopram [Lexapro] 20 mg PO DAILY 03/08/18 [History] QUEtiapine [SEROquel] 100 mg PO BID 03/08/18 [History] Past Medical History Cardiovascular History: Reports: None. Denies: CAD, Hypertension, AR Respiratory History: Reports: None. Denies: Asthma, COPD Gastrointestinal History: Reports: Hepatitis Genitourinary History: Reports: None Musculoskeletal History: Reports: None Neurological History: Reports: Seizure (reports from Cocaine use, never been on medications.) Psychiatric History: Reports: Anxiety, Depression Endocrine/Metabolic History: Reports: None. Denies: Diabetes, Type II - Infectious Disease History Infectious Disease History: Reports: Chicken Pox, Hepatitis C Social & Family History - Family History Family Medical History: Noncontributory - Caffeine Use Caffeine Use: Reports: Coffee, Energy Drinks, Soda, Tea - Living Situation & Occupation Living situation: Reports: Single, Alone Occupation: Employed (currently working a [employer] reports wanting to get back into the [employer]) ED ROS GENERAL - Review of Systems Review Of Systems: ROS reveals no pertinent complaints other than HPI. ED EXAM, GENERAL - Physical Exam Exam: See Below (dictation) Departure - Departure Time of Disposition: 23:31 Disposition: Home, Self-Care 01 Condition: Good Clinical Impression: Encounter for medical screening examination, Substance abuse - Discharge Information Additional Instructions: The following information is given to patients seen in the emergency department who are being discharged to home. This information is to outline your options for follow-up care. We provide all patients seen in our emergency department with a follow-up referral. The need for follow-up, as well as the timing and circumstances, are variable depending upon the specifics of your emergency department visit. If you don't have a primary care physician on staff, we will provide you with a referral. We always advise you to contact your personal physician following an emergency department visit to inform them of the circumstance of the visit and for follow-up with them and/or the need for any referrals to a consulting specialist. The emergency department will also refer you to a specialist when appropriate. This referral assures that you have the opportunity for followup care with a specialist. All of these measure are taken in an effort to provide you with optimal care, which includes your followup. Under all circumstances we always encourage you to contact your private physician who remains a resource for coordinating your care. When calling for followup care, please make the office aware that this follow-up is from your recent emergency room visit. If for any reason you are refused follow-up, please contact the [facility] emergency department at and asked to speak to the emergency department charge nurse. [facility] Primary [address] [address] Stop using drugs follow private medical doctor and/or clinic above return as needed as discussed
[2018-09-26] MEDS ORDERED: Sodium Chloride 0.9% 2.5 ML Syringe FLUSH PRN (23:32)
[2018-09-26] MEDS ORDERED: Sodium Chloride 0.9% 10 ML Syringe FLUSH PRN (23:32)
[2018-09-27] MEDS ORDERED: LORazepam 2 MG/ML SDV IVPUSH ONE (00:03)
== END 2018-09-27 01:40 | disposition home or self-care (01) ==
LOC: MW.ED 23:13
DX: F19.10 Other psychoactive substance abuse, uncomplicated (principal); F41.9 Anxiety disorder, unspecified; F32.9 Major depressive disorder, single episode, unspecified; Z79.899 Other long term (current) drug therapy
CPT/HCPCS: 93005; 96374; 99284; J2060

== ENCOUNTER 2019-08-30 09:33 | Emergency (ER) | payer OTHER ==
--- NOTE | 2019-08-30 10:43 | EDM.PDOCBH ---
ED HPI GENERAL MEDICAL PROBLEM - General Chief Complaint: Behavioral/Psych Stated Complaint: suicidal/depression Time Seen by Provider: 08/30/19 10:00 Source of Information: Reports: Patient History Limitations: Reports: No Limitations - History of Present Illness INITIAL COMMENTS - FREE TEXT/NARRATIVE: The patient states that he wants to kill himself as of yesterday by running his car as fast as he can into other vehicles. He states that he has never seen a psych because he does not have insurance. He states that he has a history of bipolar disease/depression and schizo disorder. Onset: Gradual (several months but worse yesterday which is when he felt like killing himself.) Duration: Chronic Location: Reports: Other (Suicidal.) Improves with: Reports: None Worsens with: Reports: None - Related Data Allergies Allergy/AdvReac Type Severity Reaction Status Date / Time No Known Allergies Allergy Verified 08/30/19 09:40 Home Meds: Home Meds Escitalopram [Lexapro] 20 mg PO DAILY 03/08/18 [History] QUEtiapine [SEROquel] 100 mg PO BID 03/08/18 [History] Past Medical History Cardiovascular History: Reports: None Respiratory History: Reports: None Gastrointestinal History: Reports: Hepatitis Genitourinary History: Reports: None Musculoskeletal History: Reports: None Neurological History: Reports: Seizure Psychiatric History: Reports: Anxiety, Depression Endocrine/Metabolic History: Reports: None - Infectious Disease History Infectious Disease History: Reports: Chicken Pox, Hepatitis C Social & Family History - Family History Family Medical History: Noncontributory - Tobacco Use Smoking Status *Q: Never Smoker - Caffeine Use Caffeine Use: Reports: Coffee, Energy Drinks, Soda, Tea - Recreational Drug Use Recreational Drug Use: No - Living Situation & Occupation Living situation: Reports: Single, Alone Occupation: Employed (currently working a [employer] reports wanting to get back into the [employer]) ED ROS GENERAL - Review of Systems Review Of Systems: See Below Constitutional: Reports: No Symptoms HEENT: Reports: No Symptoms Respiratory: Reports: No Symptoms. Denies: Shortness of Breath Cardiovascular: Reports: No Symptoms. Denies: Chest Pain, Dyspnea on Exertion, Lightheadedness, Palpitations Endocrine: Reports: No Symptoms GI/Abdominal: Reports: No Symptoms : Reports: No Symptoms Musculoskeletal: Reports: No Symptoms Skin: Reports: No Symptoms Neurological: Reports: No Symptoms Psychiatric: Reports: Depression (History of depreession for several years. He admits to alcohol abuse and is asking for help.), Hallucinations (hearing voices telling him to do things he does not want to do but the voices are not telling him to hurt himself or others.), Homicidal Ideation, Suicidal Ideation ( think about getting in his car and driving as fast as he can to kill himself and others.) Hematologic/Lymphatic: Reports: No Symptoms Immunologic: Reports: No Symptoms ED EXAM, BEHAVIORAL HEALTH - Physical Exam Exam: See Below Exam Limited By: No Limitations General Appearance: Alert, WD/WN, No Apparent Distress Eye Exam: Bilateral Eye: Normal Fundi, Normal Inspection Ears: Normal External Exam, Normal Canal, Hearing Grossly Normal, Normal TMs Nose: Normal Inspection, Normal Mucosa, No Blood Throat/Mouth: Normal Inspection, Normal Lips, Normal Teeth, Normal Gums, Normal Oropharynx, Normal Voice, No Airway Compromise Head: Atraumatic Neck: Normal Inspection, Supple, Non-Tender, Full Range of Motion Respiratory/Chest: No Respiratory Distress, Lungs Clear, Normal Breath Sounds, No Accessory Muscle Use, Chest Non-Tender Cardiovascular: Normal Peripheral Pulses, Regular Rate, Rhythm, No Edema, No Gallop, No JVD, No Murmur, No Rub GI/Abdominal: Normal Bowel Sounds, Soft, Non-Tender, No Organomegaly, No Distention, No Abnormal Bruit, No Mass Back Exam: Normal Inspection, Full Range of Motion, NT Extremities: Normal Inspection, Normal Range of Motion, Non-Tender, Normal Capillary Refill, No Pedal Edema Neurological: Alert, Normal Mood/Affect, CN II-XII Intact, Normal Cognition, Normal Gait, Normal Reflexes, No Motor/Sensory Deficits, Oriented x 3 Psychiatric: Oriented, Depressed Mood, Flat Affect, Suicidal Plan (He is thinking about getting in his car and driving as fast as he can trying to kill himself.), Suicidal Thoughts (Since yesterday but has had thoughts in the past.) , Auditory Hallucinations (hearing non-threating voices.) Skin Exam: Warm, Dry, Intact, Normal color, No rash. No: Diaphoretic COURSE, BEHAVIORAL HEALTH COMP - Course Vital Signs: Last Vital Signs Temp 97.8 F 08/30/19 09:37 Pulse 92 08/30/19 09:37 Resp 16 08/30/19 09:37 BP 176/93 H 08/30/19 09:37 Pulse Ox 97 08/30/19 09:37 Orders, Labs, Meds: Laboratory Tests 08/30/19 08/30/19 08/30/19 Range/Units 10:50 10:50 11:32 WBC 9.01 (4.0-11.0) K/uL RBC 4.92 (4.50-5.90) M/uL Hgb 16.2 (13.0-17.0) g/dL Hct 44.9 (38.0-50.0) % MCV 91.3 (80.0-98.0) fL MCH 32.9 H (27.0-32.0) pg MCHC 36.1 (31.0-37.0) g/dL RDW Std Deviation 40.8 (28.0-62.0) fl RDW Coeff of Emmy 12 (11.0-15.0) % Plt Count 266 (150-400) K/uL MPV 9.60 (7.40-12.00) fL Nucleated RBC % 0.0 /100WBC Nucleated RBCs # 0 K/uL Sodium 136 (136-148) mmol/L Potassium 3.6 (3.5-5.1) mmol/L Chloride 99 (98-107) mmol/L Carbon Dioxide 25.5 (21.0-32.0) mmol/L BUN 13 (7.0-18.0) mg/dL Creatinine 1.0 (0.8-1.3) mg/dL Est Cr Clr Drug Dosing 98.19 mL/min Estimated GFR (MDRD) > 60.0 ml/min Glucose 111 H (74-106) mg/dL Calcium 9.1 (8.5-10.1) mg/dL Total Bilirubin 0.6 (0.2-1.0) mg/dL AST 22 (15-37) IU/L ALT 30 (14-63) IU/L Alkaline Phosphatase 117 H (46-116) U/L Total Protein 8.2 (6.4-8.2) g/dL Albumin 4.5 (3.4-5.0) g/dL Globulin 3.7 (2.6-4.0) g/dL Albumin/Globulin Ratio 1.2 (0.9-1.6) TSH 3rd Generation 1.02 (0.36-3.74) uIU/mL Urine Color YELLOW Urine Appearance CLEAR Urine pH 6.0 (5.0-8.0) Ur Specific [place] >= 1.030 (1.001-1.035) Urine Protein NEGATIVE (NEGATIVE) mg/dL Urine Glucose (UA) NEGATIVE (NEGATIVE) mg/dL Urine Ketones TRACE H (NEGATIVE) mg/dL Urine Occult Blood NEGATIVE (NEGATIVE) Urine Nitrite NEGATIVE (NEGATIVE) Urine Bilirubin NEGATIVE (NEGATIVE) Urine Urobilinogen 0.2 (<2.0) EU/dL Ur Leukocyte Esterase NEGATIVE (NEGATIVE) Urine Opiates Screen (NEGATIVE) Ur Oxycodone Screen (NEGATIVE) Urine Methadone Screen (NEGATIVE) Ur Barbiturates Screen (NEGATIVE) Ur Phencyclidine Scrn (NEGATIVE) Ur Amphetamine Screen (NEGATIVE) U Methamphetamines Scrn (NEGATIVE) U Benzodiazepines Scrn (NEGATIVE) U Cocaine Metab Screen (NEGATIVE) U Marijuana (THC) Screen (NEGATIVE) 08/30/19 Range/Units 11:32 WBC (4.0-11.0) K/uL RBC (4.50-5.90) M/uL Hgb (13.0-17.0) g/dL Hct (38.0-50.0) % MCV (80.0-98.0) fL MCH (27.0-32.0) pg MCHC (31.0-37.0) g/dL RDW Std Deviation (28.0-62.0) fl RDW Coeff of Emmy (11.0-15.0) % Plt Count (150-400) K/uL MPV (7.40-12.00) fL Nucleated RBC % /100WBC Nucleated RBCs # K/uL Sodium (136-148) mmol/L Potassium (3.5-5.1) mmol/L Chloride (98-107) mmol/L Carbon Dioxide (21.0-32.0) mmol/L BUN (7.0-18.0) mg/dL Creatinine (0.8-1.3) mg/dL Est Cr Clr Drug Dosing mL/min Estimated GFR (MDRD) ml/min Glucose (74-106) mg/dL Calcium (8.5-10.1) mg/dL Total Bilirubin (0.2-1.0) mg/dL AST (15-37) IU/L ALT (14-63) IU/L Alkaline Phosphatase (46-116) U/L Total Protein (6.4-8.2) g/dL Albumin (3.4-5.0) g/dL Globulin (2.6-4.0) g/dL Albumin/Globulin Ratio (0.9-1.6) TSH 3rd Generation (0.36-3.74) uIU/mL Urine Color Urine Appearance Urine pH (5.0-8.0) Ur Specific [place] (1.001-1.035) Urine Protein (NEGATIVE) mg/dL Urine Glucose (UA) (NEGATIVE) mg/dL Urine Ketones (NEGATIVE) mg/dL Urine Occult Blood (NEGATIVE) Urine Nitrite (NEGATIVE) Urine Bilirubin (NEGATIVE) Urine Urobilinogen (<2.0) EU/dL Ur Leukocyte Esterase (NEGATIVE) Urine Opiates Screen NEGATIVE (NEGATIVE) Ur Oxycodone Screen NEGATIVE (NEGATIVE) Urine Methadone Screen NEGATIVE (NEGATIVE) Ur Barbiturates Screen NEGATIVE (NEGATIVE) Ur Phencyclidine Scrn NEGATIVE (NEGATIVE) Ur Amphetamine Screen NEGATIVE (NEGATIVE) U Methamphetamines Scrn POSITIVE (NEGATIVE) U Benzodiazepines Scrn NEGATIVE (NEGATIVE) U Cocaine Metab Screen NEGATIVE (NEGATIVE) U Marijuana (THC) Screen NEGATIVE (NEGATIVE) Medications Discontinued Medications Generic Name Dose Route Start Last Admin Trade Name Freq PRN Reason Stop Dose Admin Lorazepam 0.5 mg 08/30/19 11:38 08/30/19 11:42 Ativan PO 08/30/19 11:39 0.5 mg ONETIME ONE Administration Departure - Departure Time of Disposition: 12:25 Disposition: DC/Tfer to Psych Hosp/Unit 65 Condition: Fair Clinical Impression: Self-harm, Depressive disorder, Methamphetamine intoxication Schizophrenia Qualifiers: Schizophrenia type: undifferentiated schizophrenia Qualified Code(s): F20.3 - Undifferentiated schizophrenia - Discharge Information *PRESCRIPTION DRUG MONITORING PROGRAM REVIEWED*: No *COPY OF PRESCRIPTION DRUG MONITORING REPORT IN PATIENT NASRIN: No Forms: Interfacility Transfer EMTALA Additional Instructions: I spoke with Dr. Nixon the Psychiatrist at at approximately 12:25 PM. He has accepted him as a direct admit. He will be transferred via BLS unit. Sepsis Event Note - Evaluation Sepsis Screening Result: No Definite Risk - Focused Exam Vital Signs: Vital Signs Temp Pulse Resp BP Pulse Ox 12/20/19 09:37 97.8 F 92 16 176/93 H 97 Date Exam was Performed: 08/30/19 Time Exam was Performed: 12:24
--- NOTE | 2019-08-30 11:26 | CR ---
INDICATION: Rule out lung problems. TECHNIQUE: Chest 1 view COMPARISON: None. FINDINGS: No focal consolidation, pleural effusion, or pneumothorax. Normal heart size and pulmonary vascularity. The bones are unremarkable. IMPRESSION: No acute cardiopulmonary findings. Dictated by Bessy Millan MD @ Aug 30 2019 11:23AM Signed by Dr. Bessy Millan @ Aug 30 2019 11:25AM
[2019-08-30 11:33] LABS: BLOOD UREA NITROGEN,BUN 13 mg/dL (7.0-18.0); CARBON DIOXIDE,CO2 25.5 mmol/L (21.0-32.0); CHLORIDE,CL 99 mmol/L (98-107); GLUCOSE RANDOM 111 mg/dL (74-106); POTASSIUM,K 3.6 mmol/L (3.5-5.1); SODIUM,NA 136 mmol/L (136-148)
[2019-08-30] MEDS ORDERED: LORazepam 0.5 MG Tab PO ONE (11:38)
[2019-08-30] MEDS ORDERED: Haloperidol Lactate 5 MG/ML SDV IM ONE (12:27)
[2019-08-30] MEDS ORDERED: diphenhydrAMINE 50 MG/ML SDV IM ONE (12:27)
== END 2019-08-30 13:30 ==
LOC: MW.ED 09:33
DX: F32.9 Major depressive disorder, single episode, unspecified (principal); F20.3 Undifferentiated schizophrenia; F15.129 Other stimulant abuse with intoxication, unspecified
CPT/HCPCS: 36415; 71045; 80053; 80305; 81003; 84443; 85027; 96372; 99285; A9270; J1200; J1630

== ENCOUNTER 2021-06-24 05:37 | Emergency (ER) | payer OTHER ==
--- NOTE | 2021-06-24 06:08 | EDM.PDOC ---
ED HPI GENERAL MEDICAL PROBLEM - General Chief Complaint: General Stated Complaint: MEDICAL CLEARANCE Time Seen by Provider: 06/24/21 06:03 Source of Information: Reports: Patient History Limitations: Reports: No Limitations - History of Present Illness INITIAL COMMENTS - FREE TEXT/NARRATIVE: Patient is a 41-year-old male who per him has no medical history presents today for medical clearance. Patient has no complaints of nausea vomiting fever chills no pain anywhere. He did mention he did some drugs earlier but not state which ones he did began to have any complaints. - Related Data Allergies Allergy/AdvReac Type Severity Reaction Status Date / Time No Known Allergies Allergy Verified 08/30/19 09:40 Home Meds: Home Meds Escitalopram [Lexapro] 20 mg PO DAILY 03/08/18 [History] QUEtiapine [SEROquel] 100 mg PO BID 03/08/18 [History] Past Medical History Cardiovascular History: Reports: None Respiratory History: Reports: None Gastrointestinal History: Reports: Hepatitis Genitourinary History: Reports: None Musculoskeletal History: Reports: None Neurological History: Reports: Seizure Psychiatric History: Reports: Anxiety, Depression Endocrine/Metabolic History: Reports: None - Infectious Disease History Infectious Disease History: Reports: Chicken Pox, Hepatitis C Social & Family History - Family History Family Medical History: No Pertinent Family History - Caffeine Use Caffeine Use: Reports: Coffee, Energy Drinks, Soda, Tea - Living Situation & Occupation Living situation: Reports: Single, Alone Occupation: Employed (currently working a [employer] reports wanting to get back into the [employer]) ED ROS GENERAL - Review of Systems Review Of Systems: See Below Constitutional: Reports: No Symptoms HEENT: Reports: No Symptoms Respiratory: Reports: No Symptoms Cardiovascular: Reports: No Symptoms Endocrine: Reports: No Symptoms GI/Abdominal: Reports: No Symptoms : Reports: No Symptoms Musculoskeletal: Reports: No Symptoms Skin: Reports: No Symptoms Neurological: Reports: No Symptoms Psychiatric: Reports: No Symptoms Hematologic/Lymphatic: Reports: No Symptoms Immunologic: Reports: No Symptoms ED EXAM, GENERAL - Physical Exam Exam: See Below Exam Limited By: No Limitations General Appearance: Alert, WD/WN, No Apparent Distress Eye Exam: Bilateral Eye: EOMI, PERRL Ears: Normal External Exam Nose: Normal Inspection Throat/Mouth: Normal Inspection Head: Atraumatic, Normocephalic Respiratory/Chest: No Respiratory Distress, Lungs Clear, Normal Breath Sounds Cardiovascular: Normal Peripheral Pulses, Regular Rate, Rhythm GI/Abdominal: Normal Bowel Sounds, Soft, Non-Tender Extremities: Normal Inspection, Normal Range of Motion Neurological: Alert, Oriented, CN II-XII Intact, Normal Cognition, Normal Gait Departure - Departure Time of Disposition: 06:07 Disposition: Home, Self-Care 01 Condition: Good Clinical Impression: Medical clearance for incarceration - Discharge Information *PRESCRIPTION DRUG MONITORING PROGRAM REVIEWED*: Not Applicable *COPY OF PRESCRIPTION DRUG MONITORING REPORT IN PATIENT NASRIN: Not Applicable Instructions: Medical Screening Exam Referrals: PCP,Not In Area [Primary Care Provider] - Forms: ED Department Discharge Additional Instructions: The following information is given to patients seen in the emergency department who are being discharged to home. This information is to outline your options for follow-up care. We provide all patients seen in our emergency department with a follow-up referral. The need for follow-up, as well as the timing and circumstances, are variable depending upon the specifics of your emergency department visit. If you don't have a primary care physician on staff, we will provide you with a referral. We always advise you to contact your personal physician following an emergency department visit to inform them of the circumstance of the visit and for follow-up with them and/or the need for any referrals to a consulting specialist. The emergency department will also refer you to a specialist when appropriate. This referral assures that you have the opportunity for follow-up care with a specialist. All of these measure are taken in an effort to provide you with optimal care, which includes your follow-up. Under all circumstances we always encourage you to contact your private physician who remains a resource for coordinating your care. When calling for follow-up care, please make the office aware that this follow-up is from your recent emergency room visit. If for any reason you are refused follow-up, please contact the [facility] Emergency Department at and asked to speak to the emergency department charge nurse. Please follow up with your primary care physician. If you do not have a primary care physician, see below: [facility] [address] [place] [id number] [facility] [address] [place] [id number] You presented today for medical clearance in police custody. On exam did not have any medical complaints. Please follow-up to primary care physician if you do have any concerning signs symptoms please feel free to return to the ED. - Assessment/Plan Plan: Patient is a 41-year-old male came in today for medical clearance. Patient has no complaints on exam vital signs are stable will be discharged.
== END 2021-06-24 06:25 | disposition home or self-care (01) ==
LOC: MW.ED 05:37
DX: Z02.89 Encounter for other administrative examinations (principal)
CPT/HCPCS: 99283